=== PATIENT | female | born 1960 | race Caucasian/White ===

== ENCOUNTER 2017-05-22 06:37 | Inpatient (IN) | payer OTHER ==
[~2017-05-22] VITALS: Ht 170.2 cm; Wt 71.7 kg
--- NOTE | ~2017-05-22 | HP ---
PAT[facility] AGE: 56 Y [address] ROOM: [place] [address] LOCATION: [facility] [place] ADMIT DATE: 05/22/2017 History & Physical DISCHARGE DATE: FAMILY PHYSICIAN: VANNA BOSWELL MD ATTENDING PHYSICIAN: Missy Yeung DATE OF SERVICE: CHIEF COMPLAINT: Acute pyelonephritis with hydronephrosis. HISTORY OF PRESENTING ILLNESS: This 56-year-old white female with previous history of autoimmune hepatitis and uncharacterized peripheral neuropathy, came to the emergency department this morning with complaints of right flank and abdominal pain. States she has not been feeling well for couple of days. She describes fairly severe sharp and aching pain over the right abdomen since yesterday. She did experience sharp blow to the abdomen from a child, but was not sure if that was related. The pain seemed to be progressing and she decided to come the emergency room for definitive evaluation and management. She does admit to feeling a little nauseated, but blames this on the pain. She denies fevers, chills, or sweats. No chest pain, shortness of breath, or other abdominal pain. She has not eaten well since yesterday. She is complaining of feeling hungry and thirsty now however. She stools normally. Denies any urinary complaints that known of. She does have a numbness over the left side of her body, predominantly over the left leg. She has a proprioceptive problem which causes some disequilibrium and gait instability. She has not fallen recently. ALLERGIES: IMURAN, LEVEMIR. ILLNESSES: 1. Autoimmune hepatitis. 2. Insulin-dependent diabetes mellitus type 2. 3. Peripheral neuropathy. 4. Gait instability. 5. Depression. 6. Marfan syndrome. 7. Cervical spinal stenosis. CURRENT MEDICATIONS: 1. Metformin 1000 mg p.o. b.i.d. 2. Omeprazole 20 mg p.o. b.i.d. PAT[facility]'S NAME[facility] AGE: 56 Y [address] ROOM: [place] [address] LOCATION: [facility] [place] ADMIT DATE: 05/22/2017 History & Physical DISCHARGE DATE: FAMILY PHYSICIAN: VANNA BOSWELL MD ATTENDING PHYSICIAN: Missy Yeung 3. Zofran 4 mg p.o. q.6 hours p.r.n. 4. Amitriptyline 75 mg p.o. daily. 5. Venlafaxine 150 mg p.o. daily. 6. Budesonide SR 9 mg daily. 7. Tramadol 50 mg 1-2 tabs p.o. q.4-6 hours p.r.n. pain. 8. Zolmitriptan 5 mg p.o. daily p.r.n. headache. 9. Meclizine 25 mg p.o. t.i.d. p.r.n. (not taking). 10. Lisinopril 2.5 mg p.o. daily. 11. Tresiba daily. 12. Aspirin 81 mg p.o. daily. 13. Vitamin D 60698 units weekly. 14. Atorvastatin 40 mg p.o. daily. FAMILY HISTORY: Significant for diabetes in both parents. Her mother has heart disease. SOCIAL HISTORY: She is and lives in [place]. She is a nonsmoker. There is no significant history of alcohol use. REVIEW OF SYSTEMS: As per HPI. All other organ systems reviewed and are negative. OBJECTIVELY: VITAL SIGNS: Temperature 99.1, pulse 117, respirations 20, blood pressure 102/71, O2 saturation 99% on room air. GENERAL: She is anxious, mildly ill appearing, lying in the bed, in no acute distress. SKIN: Supple, pale, warm, dry. No obvious rashes. HEENT: Otherwise, normocephalic. Sclerae nonicteric. Oropharynx clear. Mucous membranes are pink and moist. Dentition is intact. She has an oral appliance in the upper palate without any complicating features. NECK: Supple. No masses or adenopathy. No thyromegaly. No JVD. CHEST: Wall is symmetrical. HEART: Regular without murmurs. LUNGS: Clear bilaterally. No wheezes or crackles are heard. ABDOMEN: Soft and protuberant. Diffusely tender with some guarding over the right upper abdomen. There is exquisite tenderness to palpation about the right CVA. Bowel sounds are present and diminished. No masses or hepatosplenomegaly. AND RECTAL: Not done. EXTREMITIES: Display no significant clubbing, cyanosis, edema. NEUROLOGIC: Sensation is subjectively diminished over the left lower extremity. Strength is 4 to 5/5. Left greater than right. DTRs are 0 to 1+. Roughly symmetrical. Gait is unsteady with assistance. PATIENT'S NAME: KALEY [facility]DEL[facility] AGE: 56 Y [address] ROOM: [address] [address] LOCATION: [facility] [place] ADMIT DATE: 05/22/2017 History & Physical DISCHARGE DATE: FAMILY PHYSICIAN: VANNA BOSWELL MD ATTENDING PHYSICIAN: Missy Yeung LABORATORY AND X-RAY DATA: CT scan of the abdomen and pelvis showed findings consistent with pyelonephritis on the right with mild right hydronephrosis and hydroureter. No clear evidence for stone identified. CBC showed a white blood cell count 18.2, hemoglobin of 12.9, hematocrit 40.7, platelets 295. Chemistries revealed BUN and creatinine of 7 and 0.9 respectively, sodium and potassium 139 and 3.7, chloride and CO2 103 and 26, calcium 9.3. AST and ALT 22 and 43 respectively. Bilirubin was 0.7. Glucose was a little elevated at 183. Sedimentation rate was 16. PT and PTT 11.1 and 28 with an INR of 1.06. Urinalysis significant for 50-100 wbc's and 2-5 rbc's. Procalcitonin was less than 0.05. A lactate was elevated at 3.2, amylase and lipase 226 and 136 respectively. C-reactive protein was 1.54. ASSESSMENT/PLAN: 1. Acute pyelonephritis on the right. She does not appear to meet sepsis criteria. We will admit to inpatient care and continue IV fluids as well as broad-spectrum antibiotic therapy with levofloxacin. We will await cultures and adjust therapy accordingly. She is currently hemodynamically stable without any evidence of end-organ dysfunction. 2. Acute hydronephrosis with hydroureter as discussed above. There is no evidence for obstructing stones and I would suspect this is probably related to infection. We will continue with IV fluids and IV antibiotics above. We will follow up clinically for now. Consider repeat imaging and/or Urology consultation. 3. Diabetes mellitus type 2, insulin dependent. Controlled. We will utilize Accu-Cheks and sliding scale insulin while she is inpatient. 4. Autoimmune hepatitis, currently clinically stable, on budesonide therapy. We will plan to continue with that regimen and clinical follow up with specialty care. 5. Peripheral neuropathy, uncharacteristic, she has been on undergoing outpatient evaluation by a nerve conduction specialist apparently. We will engage in some supportive and restorative cares here and observe strict fall precautions. 6. Gait instability. I will go ahead and initiate physical therapy, occupational therapy evaluations. 7. Deep venous thrombosis prophylaxis. We will use low-dose Lovenox while she is inpatient. MISSY YEUNG MD AJErnestine/robyn PATIENT'S NAME: KALEY [facility]DEL[facility]IO [facility] AGE: 56 Y [address] ROOM: [place] [address] LOCATION: [facility] [place] ADMIT DATE: 05/22/2017 History & Physical DISCHARGE DATE: FAMILY PHYSICIAN: VANNA BOSWELL MD ATTENDING PHYSICIAN: Missy Yeung /[id number] D: [id number] T: [id number] HISTORY & PHYSICAL
--- NOTE | ~2017-05-22 | DS ---
PATIENT'S NAME: KALEY CANDEL[facility]IO [facility] AGE: 56 Y [address] ROOM: [id number] [place], [place] [address] LOCATION: [facility] [place] ADMIT DATE: 05/22/2017 Discharge Summary DISCHARGE DATE: 05/25/2017 FAMILY PHYSICIAN: Mark Murrieta MD ATTENDING PHYSICIAN: Neto Nicolas REASON FOR ADMISSION: Acute right-sided back and flank pain, general malaise. ADMITTING DIAGNOSIS: Acute pyelonephritis with hydronephrosis, secondary to Escherichia coli urinary tract infection. SECONDARY DIAGNOSES: 1. Labile type 2 diabetes, insulin-dependent. 2. Facial swelling, felt to represent Bradykinin-mediated angioedema. 3. Chronic peripheral neuropathy. 4. Autoimmune hepatitis. 5. Gait instability. 6. Depression. 7. Hyperlipidemia. PENDING LABS OR OTHER TESTING AT THE TIME OF DISCHARGE: None. HOSPITAL COURSE: The patient is a very pleasant 56-year-old female with the aforementioned history, who presented to the emergency department after a couple of days of general malaise with progressive right flank and abdominal pain, also noting that she had a sharp blow to the abdomen incidentally from a child, but did not feel that this was related. On arrival, she was noted to have a temperature of 99.1, pulse 117, with blood pressure 102/71. She was found to have significant right-sided CVA tenderness, and CT scan of the abdomen and pelvis showed findings consistent with pyelonephritis on the right with mild right associated hydronephrosis and hydroureter. No clear evidence of urolithiasis was identified. CBC on arrival showed a white count of 18.2 as well, and the patient was admitted with sepsis and started on levofloxacin. The following day, the patient had noted significant improvement in her back pain. However, she did develop impressive right periorbital edema, worst on hospital day #3 failing to respond initially to Benadryl. The patient interestingly had noted that she has had episodes like this that seem to be unilateral, often periorbital, but occasionally involving the lower portion of her jaw, never compromising her airway, but these have been present over the last year. Review of medications noted the patient was started on lisinopril 2.5 mg around that time, at least per patient's report. Due to the swelling, antibiotics were transitioned from Levaquin to Bactrim on the day prior to discharge. It was felt unlikely the patient was having an allergic reaction as she suffered no other evidence of this including no urticaria, but given the swelling, went ahead and made the change. Lisinopril was discontinued. PATIENT'S NAME: KALEY CANDELARIO [facility] AGE: 56 Y [address] ROOM: [place] [address] LOCATION: [facility] [place] ADMIT DATE: 05/22/2017 Discharge Summary DISCHARGE DATE: 05/25/2017 FAMILY PHYSICIAN: Mark Murrieta MD ATTENDING PHYSICIAN: Neto Nicolas It was felt that this was likely related to Bradykinin-mediated angioedema and should not take VLADISLAV inhibitors going forward, could consider ARB therapy. Could also consider C1/C4 inhibitor testing as well. With regard to diabetes, glucose was elevated throughout her stay, likely secondary to the infection. This was treated as needed with no longstanding adjustments made to insulin therapy upon discharge. MEDS AND PERTINENT CHANGES: See MAR. Discontinued lisinopril, added Bactrim. Percocet given PRN pain on discharge. CONSULTANTS: None. CONDITION: Stable at the time of discharge. See most recent progress note for exam on the date of discharge, though periorbital edema nearly resolved at the time of discharge. DISPOSITION: The patient was instructed to continue to follow her diabetic diet and activity as tolerated. FOLLOWUP: She does have followup visit with Dr. Murrieta on June 05, he is out of the office this week. We will attempt to discuss with him should he have any further questions, but we will forward a copy of discharge summary to his office. Time spent on date of discharge including direct patient care and coordination of discharge activities 35 minutes. MD JOSE BYRD/robyn /[id number] d: 05/26/17 0216 t: 05/26/17 1433, DISCHARGE SUMMARY
--- NOTE | ~2017-05-22 | ER ---
[facility] AGE: 56 Y [address] ROOM: [place] [address] LOCATION: [facility] [place] ADMIT DATE: 05/22/2017 ER/Outpatient Report DISCHARGE DATE: FAMILY PHYSICIAN: VANNA BOSWELL MD ATTENDING PHYSICIAN: Neto Nicolas TIME OF ARRIVAL: 0637. TIME SEEN: 0650. IDENTIFICATION: A 56-year-old female. CHIEF COMPLAINT: Abdominal back pain. HISTORY OF PRESENT ILLNESS: The patient is a 56-year-old female, who presented with right-sided abdominal and flank pain starting at 4 o'clock. Sudden onset. She tried position changes, water, and no relief. She has not taken any pain medication. She has some chronic right-sided pain with an autoimmune hepatitis, and she said that this is very different from that. She said she has not ever had pain this severe or like this before. She denies having any fever or chills. She has had some nausea with this. No numbness or tingling. No other problems or concerns. ALLERGIES: TO LEVEMIR AND IMURAN. CURRENT MEDICATIONS: 1. Metformin 1000 mg b.i.d. 2. Omeprazole 20 mg b.i.d. 3. Ondansetron 4 mg as needed. 4. Amitriptyline 75 mg. 5. Venlafaxine 150 mg daily. 6. Budesonide mg daily. 7. Tramadol 50 mg p.r.n. 8. Sumatriptan as needed. 9. Lisinopril 2.5 mg daily. 10. Tresiba daily. 11. Aspirin 81 mg daily. 12. Vitamin D 50,000 units a week. 13. Atorvastatin 40 mg daily. [facility]: [facility] AGE: 56 Y [address] ROOM: [place] [address] LOCATION: [facility] [place] ADMIT DATE: 05/22/2017 ER/Outpatient Report DISCHARGE DATE: FAMILY PHYSICIAN: VANNA BOSWELL MD ATTENDING PHYSICIAN: Neto Nicolas MEDICAL PROBLEMS: 1. Autoimmune hepatitis. 2. Insulin-dependent diabetes. 3. Peripheral neuropathy. 4. Gait instability. 5. Depression. 6. Marfan syndrome. 7. Cervical spinal stenosis. PRIOR SURGERIES: 1. section x2. 2. EGD. SOCIAL HISTORY: The patient lives in [place] with her . She is disabled. Tobacco use: Denies. Alcohol use: Denies. Drug use: Denies. FAMILY HISTORY: Positive for diabetes and heart disease. REVIEW OF SYSTEMS: All systems were reviewed and are negative other than what is noted in the HPI. PHYSICAL EXAMINATION: VITAL SIGNS: Temperature was 99.1, weight of 70 kg, blood pressure was 102/71, pulse was 117, respirations were 20, and saturations were 99%. GENERAL: A 56-year-old, ill-appearing female with 8/10 pain. Very uncomfortable. HEENT: Head: Normocephalic and atraumatic. Ears: TMs were not visualized. Eyes: Pupils were equal and reactive to light and accommodation. Extraocular movements are intact. Nose: Mucosa was pink. No lesions. Mouth: No lesions. Pharynx was benign. Mucous membranes are moist. NECK: Supple. No lymphadenopathy. No nuchal rigidity. LUNGS: Clear to auscultation. No wheezes or rales. HEART: Regular rate and rhythm. ABDOMEN: Soft, nondistended, and tender to palpation in the right upper abdomen and in the right flank. EXTREMITIES: No edema. Good distal pulses. NEUROLOGICAL: The patient was alert and oriented x4. Cranial nerves II through XII were grossly intact. Motor strength was 5/5 throughout. Sensation was intact to light touch. No lower extremities edema. No calf tenderness. EMERGENCY ROOM COURSE: An IV was initiated. The patient was given Zofran and fentanyl for pain, which PATIENT'S NAME: KALEY CANDELARIO [facility] AGE: 56 Y [address] ROOM: [address] [address] LOCATION: [facility] [place] ADMIT DATE: 05/22/2017 ER/Outpatient Report DISCHARGE DATE: FAMILY PHYSICIAN: VANNA BOSWELL MD ATTENDING PHYSICIAN: Neto Nicolas did give her some relief. LABORATORY DATA: Sodium of 139, potassium of 3.7, chloride of 103, CO2 of 26, BUN of 7, creatinine of 0.9, and blood sugar of 183. Liver enzymes were normal, amylase was elevated at 226 and lipase was normal at 136. CRP was elevated at 1.54. Hemoglobin of 12.9, hematocrit of 40.7, platelets of 295, and white count of 18.2 with 61% neutrophils. INR is 1.06. Procalcitonin was less than 0.05. Lactate was elevated at 3.2. UA: 50 to 100 white cells, 2 to 5 red cells, and many white blood cell clumps. Urine culture is pending. Blood culture x2 was pending. DIAGNOSTIC STUDIES: CT of abdomen and pelvis, stone protocol with mild right hydronephrosis and hydroureter suggesting partial renal collecting system obstruction. No obstruction of calculus is identified. Appearance could reflect presence of radiolucent stone or reflect recent passage of a kidney stone with residual collecting system distention. Pyelonephritis is also a differential consideration. No evidence of bowel obstruction, and the patient has incidental spine scoliosis. The patient did get some relief with fentanyl and Zofran, but is still very uncomfortable, and states she has never had pain like this before. IMPRESSION AND PLAN: 1. Acute pyelonephritis. Plan, an IV has been initiated with normal saline at 100 mL/hr. Levaquin 750 mg IV was initiated in the Emergency Room. The patient will be admitted per Dr. Nicolas, hospitalist. The patient does not meet the sepsis criteria, and has remained hemodynamically stable. 2. Acute hydronephrosis. No evidence of stone, may be secondary to pyelonephritis. 3. Diabetes mellitus, insulin requiring. 4. Autoimmune hepatitis, on budesonide therapy. 5. Peripheral neuropathy. The patient is scheduled to be evaluated in [place] at [facility] for this. Dr. Nicolas planned for admission. Again, the patient remained hemodynamically stable throughout her stay here in the Emergency Room. RENA BROCK MD CAR/modl PATIENT'S NAME: KALEY CANDELARIO [facility] AGE: 56 Y [address] ROOM: [place] [address] LOCATION: [facility] [place] ADMIT DATE: 05/22/2017 ER/Outpatient Report DISCHARGE DATE: FAMILY PHYSICIAN: VANNA BOSWELL MD ATTENDING PHYSICIAN: Neto Nicolas /[id number] d: 05/22/[id number] t: 05/26/17912, OUTPATIENT REPORT
[2017-05-22 07:12] LABS: BASOPHIL # 0.1 K/uL (0.0-0.2); BASOPHIL % 0.7 %; EOSINOPHIL # 0.4 K/uL (0.0-0.5); EOSINOPHIL % 1.9 %; HEMATOCRIT 40.7 % (33.0-46.0); HEMOGLOBIN 12.9 g/dL (10.0-15.0); IMMATURE GRANULOCYTE # 0.4 K/uL (0.0-0.3); IMMATURE GRANULOCYTE % 1.9 %; LYMPHOCYTE # 4.8 K/uL (0.8-4.0); LYMPHOCYTE % 26.3 %; MCH 26.4 pg (27.0-34.0); MCHC 31.7 gm/dL (32.0-36.5); MCV 83.4 fl (83.0-98.0); MONOCYTE # 1.4 K/uL (0.0-1.0); MONOCYTE % 7.5 %; MPV 11.1 fl (9.4-12.4); NEUTROPHIL # (ANC) 11.3 K/uL (1.8-7.8); NEUTROPHIL % 61.7 %; NRBC % 0 /100WBC (0-0.00); PLATELET COUNT 295 K/uL (150-450); RBC 4.88 M/uL (3.50-5.50); RDW-CV 15.4 % (11.9-14.6)
[2017-05-22 07:13] LABS: WBC 18.2 K/uL (4.0-11.0)
[2017-05-22 07:17] LABS: BILIRUBIN URINE NEGATIVE (NEGATIVE); BLOOD URINE 250 /UL (NEGATIVE); COLOR URINE YELLOW (YELLOW); GLUCOSE URINE 50 mg/dL (NEGATIVE); KETONE URINE NEGATIVE (NEGATIVE); LEUKOCYTES URINE 500 /UL (NEGATIVE); NITRITE URINE NEGATIVE (NEGATIVE); PROTEIN URINE 100 mg/dL (NEGATIVE); TURBIDITY URINE 3+ (CLEAR); UROBILINOGEN URINE NORMAL (NORMAL)
[2017-05-22 07:28] LABS: BACTERIA URINE MODERATE (NEGATIVE); EPITHELIAL URINE NEGATIVE #/HPF (NEGATIVE); WBC CLUMPS URINE MANY (NEGATIVE); WBC URINE 50-100 #/HPF (NEGATIVE)
[2017-05-22 07:30] LABS: ALBUMIN 3.6 gm/dL (3.5-5.0); ANION GAP 13.7 (10.0-19.0); CALCIUM 9.3 mg/dL (8.5-10.5); CREATININE 0.9 mg/dL (0.5-1.1); POTASSIUM 3.7 mMol/L (3.7-5.1); TOTAL BILIRUBIN 0.7 mg/dL (0.0-1.5); TOTAL PROTEIN 7.6 g/dL (6.0-8.4)
[2017-05-22 07:33] LABS: INR - (THERAPEUTIC) 1.06 (0.92-1.07); PROTIME 11.1 SECONDS (9.8-11.4); PTT 28 SECONDS (25-32)
[2017-05-22] MEDS ORDERED: GLUCOPHAGE1000 MG PO (12:09)
[2017-05-22] MEDS ORDERED: PRILOSEC20 MG PO (12:10)
[2017-05-22] MEDS ORDERED: ZOFRAN4 MG PO (12:10)
[2017-05-22] MEDS ORDERED: ELAVIL75 MG PO (12:11)
[2017-05-22] MEDS ORDERED: EFFEXOR XR150 MG PO (12:11)
[2017-05-22] MEDS ORDERED: BUDESONIDE EC3 MG PO (12:12)
[2017-05-22] MEDS ORDERED: ULTRAM50 MG PO (12:13)
[2017-05-22] MEDS ORDERED: ZOLMITRIPTAN5 MG PO (12:14)
[2017-05-22] MEDS ORDERED: ZESTRIL2.5 MG PO (12:14)
[2017-05-22] MEDS ORDERED: ASPIRIN LO-DOSE81 MG PO (12:15)
[2017-05-22] MEDS ORDERED: TRESIBA FL200 UNIT/1 SUB-Q (12:15)
[2017-05-22] MEDS ORDERED: DRISDOL 5050000 UNIT PO (12:16)
[2017-05-22] MEDS ORDERED: LIPITOR40 MG PO (12:16)
[2017-05-23 04:42] LABS: BASOPHIL # 0.1 K/uL (0.0-0.2); BASOPHIL % 0.5 %; EOSINOPHIL # 0.2 K/uL (0.0-0.5); EOSINOPHIL % 2.1 %; HEMOGLOBIN 10.5 g/dL (10.0-15.0); IMMATURE GRANULOCYTE # 0.2 K/uL (0.0-0.3); IMMATURE GRANULOCYTE % 1.6 %; LYMPHOCYTE # 3.2 K/uL (0.8-4.0); LYMPHOCYTE % 28.6 %; MCH 26.6 pg (27.0-34.0); MCHC 31.8 gm/dL (32.0-36.5); MCV 83.5 fl (83.0-98.0); MONOCYTE # 0.9 K/uL (0.0-1.0); MONOCYTE % 8.1 %; NEUTROPHIL # (ANC) 6.5 K/uL (1.8-7.8); NEUTROPHIL % 59.1 %; NRBC % 0 /100WBC (0-0.00); RBC 3.95 M/uL (3.50-5.50); RDW-CV 15.4 % (11.9-14.6)
[2017-05-23 04:45] LABS: PLATELET COUNT 208 K/uL (150-450)
[2017-05-23 04:55] LABS: ALBUMIN 2.8 gm/dL (3.5-5.0); ANION GAP 9.9 (10.0-19.0); CALCIUM 8.5 mg/dL (8.5-10.5); CREATININE 0.8 mg/dL (0.5-1.1); PHOSPHORUS 4.4 mg/dL (2.5-4.9); POTASSIUM 3.9 mMol/L (3.7-5.1)
[2017-05-24 04:41] LABS: ANION GAP 9.3 (10.0-19.0); BLOOD UREA NITROGEN 7 mg/dL (6-24); CALCIUM 8.6 mg/dL (8.5-10.5); CHLORIDE 110 mMol/L (96-110); CO2 28 mMol/L (22-32); CREATININE 0.7 mg/dL (0.5-1.1); POTASSIUM 4.3 mMol/L (3.7-5.1); SODIUM 143 mMol/L (135-145)
[2017-05-25] MEDS ORDERED: PERCOCET 5-3251 EACH PO (12:58)
[2017-05-25] MEDS ORDERED: BACTRIM DS1 TAB PO (13:08)
[2017-05-25] MEDS ORDERED: TYLENOL325 MG PO (13:12)
[2017-05-25] MEDS ORDERED: MIRALAX17 GM PO (13:16)
[2017-05-25] MEDS ORDERED: BENADRYL25 MG PO (13:19)
== END 2017-05-25 14:20 | disposition disaster alternative care site (69) | DRG 872 ==
LOC: GMED 06:37 → GMSU 10:09
PROVIDERS: Family Medicine; Hospitalist; ADMIT Family Medicine
DX: A41.9 Sepsis, unspecified organism (principal); Q87.40 Marfan syndrome, unspecified; E11.42 Type 2 diabetes mellitus with diabetic polyneuropathy; N39.0 Urinary tract infection, site not specified; N13.6 Pyonephrosis; B96.20 Unspecified Escherichia coli [E. coli] as the cause of diseases classified elsewhere; Z79.4 Long term (current) use of insulin; K75.4 Autoimmune hepatitis; R26.81 Unsteadiness on feet; F32.9 Major depressive disorder, single episode, unspecified; M48.02 Spinal stenosis, cervical region; Z79.82 Long term (current) use of aspirin; R60.9 Edema, unspecified
CPT/HCPCS: J1650; J1956; J2405; J3010; J7030